=== PATIENT | male | born 1980 | race American Indian/Alaskan Native ===

== ENCOUNTER 2016-07-17 19:39 | Emergency (ER) | payer MEDICAID ==
[2016-07-17 19:40] VITALS: BMI 27.3
[2016-07-17 19:47] VITALS: BP 114/77; PULSE 78; TEMP 98.2
--- NOTE | 2016-07-17 20:58 | ED PDOC ---
Arrival/HPI - General Historian: Patient - History of Present Illness Time/Duration: Other (2 days) Symptom Course: Unchanged Quality: Aching Severity Level: 4 Context: Other (Worse with movement) <Anabela Frazier - Last Filed: 07/17/16 20:55> <Raman Tellez - Last Filed: 07/17/16 21:23> - General Chief Complaint: Upper Extremity Problem/Injury Time Seen by Provider: 07/17/16 20:17 - History of Present Illness Narrative History of Present Illness (Text): 07/17/16 20:56 35-year-old male presents today with left shoulder pain. Patient states he has had problems with the shoulder in the past. Patient states he woke up with the pain in 2 days ago. He denies any recent trauma or injury. Patient states he has a pain at rest but it is worse with abduction of the shoulder. Patient states he also has pain trying to turn a doorknob. He denies numbness weakness or tingling in the extremity. No chest pain or shortness of breath. Denies back pain. Patient states he took Motrin for pain without improvement. (Anabela Frazier) Past Medical History - Provider Review Nursing Documentation Reviewed: Yes - Travel History Have you recently traveled outside [place] w/in the past 3 mons?: No - Tetanus Immunization Tetanus Immunization: Unknown - Psychiatric Hx Substance Use: No <Anabela Frazier - Last Filed: 07/17/16 20:55> Family/Social History - Physician Review Nursing Documentation Reviewed: Yes Family/Social History: Unknown Family HX Smoking Status: Never Smoked Hx Alcohol Use: No Hx Substance Use: No <Anabela Frazier - Last Filed: 07/17/16 20:55> Allergies/Home Meds <Anabela Frazier - Last Filed: 07/17/16 20:55> <Raamn Tellez - Last Filed: 07/17/16 21:23> Allergies/Adverse Reactions: Allergies No Known Allergies Allergy (Verified 07/17/16 19:44) Review of Systems - Review of Systems Constitutional: absent: Fatigue, Fevers Respiratory: absent: SOB, Cough Cardiovascular: absent: Chest Pain, Palpitations Gastrointestinal: absent: Abdominal Pain, Nausea, Vomiting Genitourinary Male: absent: Dysuria, Frequency, Hematuria Musculoskeletal: Arthralgias (Left shoulder pain). absent: Back Pain, Neck Pain Skin: absent: Rash, Pruritis Neurological: absent: Headache, Dizziness Psychiatric: absent: Anxiety, Depression, Suicidal Ideation <Anabela Frazier - Last Filed: 07/17/16 20:55> Physical Exam Vital Signs Reviewed: Yes Temperature: Afebrile Blood Pressure: Normal Pulse: Regular Respiratory Rate: Normal Appearance: Positive for: Well-Appearing, Non-Toxic, Comfortable Pain Distress: None Mental Status: Positive for: Alert and Oriented X 3 - Systems Exam Head: Present: Atraumatic Mouth: Present: Moist Mucous Membranes Neck: Present: Normal Range of Motion Respiratory/Chest: Present: Clear to Auscultation, Good Air Exchange. No: Respiratory Distress, Accessory Muscle Use Cardiovascular: Present: Regular Rate and Rhythm, Normal S1, S2. No: Murmurs Upper Extremity: Present: Normal ROM, NORMAL PULSES, Tenderness (Left shoulder: There is tenderness noted over the anterior aspect of the left shoulder. Pain with abduction. Full range of motion of the shoulder. Sensation and distal pulses intact. There is no edema nor erythema nor ecchymosis), Neurovascularly Intact, Capillary Refill < 2s. No: Swelling, Erythema, Deformity Neurological: Present: GCS=15, Speech Normal Skin: Present: Warm, Dry, Normal Color. No: Rashes Psychiatric: Present: Alert, Oriented x 3 <Anabela Frazier - Last Filed: 07/17/16 20:55> Medical Decision Making <Anabela Frazier - Last Filed: 07/17/16 20:55> <Raman Tellez - Last Filed: 07/17/16 21:23> ED Course and Treatment: 07/17/16 20:59 Patient nontoxic well-appearing in no distress with stable vital signs X-rays of the left shoulder: No fracture Toradol IM I discussed all results with patient advised to followup with the orthopedist for the next 2 days. Return if symptoms worsen persist or new symptoms develop i advised the patient that although the xrays show no fracture; there is still a possibility for ligamentous or tendon injury the patient must see the orthopedist for further evaluation. Patient verbalizes understanding of discharge instructions and need for immediate followup. all aspects of this case were discussed the attending of record. Impression: Shoulder pain Motrin every 6 hours as needed for pain Tramdol; one tablet every 6 hours as needed for moderate to severe pain, may cause drowsiness Rest, ice, compression, elevation Followup with the orthopedist within the next 2 days Followup with primary care physician within the next 2 days Return if any other concerning symptoms develop 07/17/16 21:00 (Anabela Frazier) - RAD Interpretation Radiology Orders: 07/17/16 20:18 SHOULDER LEFT [RAD] Stat - Medication Orders Current Medication Orders: Discontinued Medications Ketorolac Tromethamine (Toradol) 60 mg IM STAT STA Stop: 07/17/16 20:19 Last Admin: 07/17/16 20:38 Dose: 60 mg - 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 <Raman Tellez - Last Filed: 07/17/16 21:23> Disposition/Present on Arrival - Present on Arrival Any Indicators Present on Arrival: No History of DVT/PE: No History of Uncontrolled Diabetes: No Urinary Catheter: No History of Decub. Ulcer: No History Surgical Site Infection Following: None - Disposition Have Diagnosis and Disposition been Completed?: Yes Disposition Time: 20:56 Patient Plan: Discharge <Anabela Frazier - Last Filed: 07/17/16 20:55> <Raman Tellez - Last Filed: 07/17/16 21:23> - Disposition Diagnosis: Shoulder pain Disposition: HOME/ ROUTINE Patient Problems: Current Active Problems Problem Status Onset Shoulder pain Acute Condition: GOOD Discharge Instructions (ExitCare): Shoulder Pain (ED) Additional Instructions: Motrin every 6 hours as needed for pain Tramadol one tablet every 6 hours as needed for moderate to severe pain, may cause drowsiness Rest, ice, compression, elevation Followup with the orthopedist within the next 2 days Followup with primary care physician within the next 2 days Return if any other concerning symptoms develop Prescriptions: Ibuprofen [Motrin] 600 mg PO Q6H PRN #20 tab PRN Reason: pain/fever reduction traMADol [Ultram] 50 mg PO Q6H PRN #10 tab PRN Reason: moderate to severe pain Referrals: Mario Stroud APN [Primary Care Provider] - Follow up with primary Michaela Jacobson MD [Staff Provider] - Follow up with primary [facility] [Outside] - Follow up with primary Forms: WORK NOTE
[2016-07-17 21:23] VITALS: RESP 16; O2SAT 99
--- NOTE | 2016-07-18 08:25 | RAD ---
PROCEDURE: Radiographs of the Left Shoulder HISTORY: left shoulder pain COMPARISON: No prior. FINDINGS: BONES: Normal. No fracture. JOINTS: Normal. Glenohumeral and acromioclavicular joints preserved. No osteoarthritis. SOFT TISSUES: Normal. OTHER FINDINGS: None. IMPRESSION: Normal radiographs of the left shoulder.
== END 2016-07-17 21:00 | disposition home or self-care (01) ==
LOC: ED 19:39
DX: M25.512 Pain in left shoulder (principal)
CPT/HCPCS: 73030; 96372; 99283; J1885